=== PATIENT | female | born 1980 | race Caucasian/White ===

== ENCOUNTER 2018-04-15 16:35 | Emergency (ER) | payer OTHER ==
[~2018-04-15] VITALS: Ht 162.6 cm; Wt 79.8 kg
[~2018-04-15 16:35] MED LIST: DOLOGESIC CAPSU1 CAP PO; DURICEF500 MG PO
== END 2018-04-15 21:49 | disposition home or self-care (01) ==
LOC: ER 16:35
DX: T78.49XA Other allergy, initial encounter (principal); R21 Rash and other nonspecific skin eruption

== ENCOUNTER 2021-01-03 06:38 | Day surgery (SDC) | payer OTHER | END 2021-01-03 16:35 | disposition home or self-care (01) | LOC: CIR.AMB 06:38 | PROVIDERS: ATTEND Obstetrics & Gynecology Maternal & Fetal Medicine | DX: O02.1 Missed abortion (principal); Z20.822 Contact with and (suspected) exposure to COVID-19 ==

== ENCOUNTER → 2023-01-21 06:00 | Outpatient (CLI) | payer OTHER | END | disposition home or self-care (01) | LOC: LAB 06:00 → ADM 08:15 → CIR.AMB 01-22 08:15 → EDSTATUS 01-22 08:15 → CIR.AMB 01-22 13:20 | PROVIDERS: ATTEND Obstetrics & Gynecology Gynecology | DX: N87.9 Dysplasia of cervix uteri, unspecified (principal) ==